=== PATIENT | male | born 1985 | race Caucasian/White ===

== ENCOUNTER 2017-01-15 13:03 | Emergency (ER) | payer SELFPAY ==
[2017-01-15] MEDS ORDERED: Sodium Chloride 0.9% 1,000 ML IV ONE (13:35)
--- NOTE | 2017-01-15 14:18 | C.PDOC ---
History Of Present Illness Pt is a 31 year old male presents to the ER c/o fever for 5 days. Patient notes feeling lethargic, body aches, sore throat, and abdominal bloating. Patient notes taking advil with no relief. Patient denies nausea, vomiting, trauma, diarrhea, sick contact, or any other complaints. Pt denies any abdominal pain. Time Seen by Provider: 01/15/17 13:31 Chief Complaint (Nursing): Abdominal Pain History Per: Patient History/Exam Limitations: no limitations, language barrier ([place] [id number]) Onset/Duration Of Symptoms: Days Current Symptoms Are (Timing): Still Present Sick Contacts (Context): None Associated Symptoms: Fever, Sore Throat Severity: Mild Past Medical History Reviewed: Historical Data, Nursing Documentation, Vital Signs Vital Signs: Last Vital Signs Temp 98.7 F 01/15/17 15:54 Pulse 95 H 01/15/17 15:54 Resp 18 01/15/17 15:54 BP 104/70 01/15/17 15:54 Pulse Ox 97 01/15/17 15:54 - Medical History PMH: No Chronic Diseases Family History: States: Diabetes, Other - Social History Hx Tobacco Use: No Hx Alcohol Use: No Hx Substance Use: No - Immunization History Hx Tetanus Toxoid Vaccination: No Hx Influenza Vaccination: No Hx Pneumococcal Vaccination: No Review Of Systems Except As Marked, All Systems Reviewed And Found Negative. Constitutional: Positive for: Fever, Malaise (Lethargic). Negative for: Other ( Trauma, Pain.) ENT: Positive for: Other (Sore throat) Gastrointestinal: Positive for: Other (Abdominal bloating). Negative for: Nausea, Vomiting, Diarrhea Musculoskeletal: Positive for: Other (Body aches) Physical Exam - Physical Exam Appears: Non-toxic, No Acute Distress Skin: Warm, Dry, No Rash Head: Atraumatic, Normacephalic Eye(s): bilateral: Normal Inspection Nose: Normal Oral Mucosa: Moist Tongue: Normal Appearing Lips: Normal Appearing Teeth: Normal Dentition Throat: Exudate (White exudates on tonsils bilaterally; no drooling, no trismus , no hot potato voice), No Other (No submandibular lymphadenopathy ) Neck: Normal ROM, Supple Lymphatic: Other (see throat exam) Cardiovascular: Rhythm Regular, No Murmur Respiratory: Normal Breath Sounds, No Rales, No Rhonchi, No Wheezing Gastrointestinal/Abdominal: Bowel Sounds, Soft, No Tenderness, No Guarding, No Rebound Extremity: Normal ROM Neurological/Psych: Oriented x3, Normal Speech, Normal Cognition ED Course And Treatment - Laboratory Results Result Diagrams: 01/15/17 14:19 01/15/17 14:19 Medical Decision Making Medical Decision Making: Initial Impression: Pharyngitis and bodyaches; lethargy Initial Plan: Lethargy probably from fever, but will check labs as a precaution. 3:26 PM -- Pt feels much better. I used an interpretor to obtain a better history. In contrast to triage, pt has not had any abdominal pain. Pt states the primary issue was his throat pain. Although rapid strep was negative, if a good throat swab is not obtained, you can have false negative. Strep throat also produces very high WBC count (as this pt has). Lactate result shows no signs of severe sepsis. I will treat for strep pharyngitis. Disposition - Disposition Referrals: [facility] [Outside] Disposition: HOME/ ROUTINE Disposition Time: 15:28 Condition: IMPROVED Prescriptions: Ibuprofen [Motrin Tab] 1 tab PO Q8 PRN #30 tab PRN Reason: Fever >100.4 F Penicillin VK [Pen-Vee K] 1 tab PO BID #20 tab Instructions: Strep Throat (ED) Forms: General Discharge Instructions Print Language: ITALIAN - POA Present On Arrival: None - Clinical Impression Clinical Impression: Pharyngitis - Scribe Statement The provider has reviewed the documentation as recorded by the Scribe Lincoln garzon All medical record entries made by the Scribe were at my direction and personally dictated by me. I have reviewed the chart and agree that the record accurately reflects my personal performance of the history, physical exam, medical decision making, and the department course for this patient. I have also personally directed, reviewed, and agree with the discharge instructions and disposition.
[2017-01-15 14:26] LABS: BASO # 0.1 K/uL (0.0-0.2); BASO % 0.5 % (0.0-2.0); EOS % 0.1 % (0.0-4.0); HEMATOCRIT 44.1 % (35.0-51.0); LYMPH # 2.9 K/uL (1.0-4.3); LYMPH % 15.9 % (20.0-40.0); MEAN CELL VOLUME 85.8 fL (80.0-94.0); MEAN CORPUSCULAR HEMOGLOBIN 28.6 pg (27.0-31.0); MEAN CORPUSCULAR HGB CONC 33.3 g/dL (33.0-37.0); MEAN PLATELET VOLUME 8.1 fL (7.2-11.7); MONO # 1.9 K/uL (0.0-0.8); MONO % 10.2 % (0.0-10.0); NRBC % 0.7 % (0.0-2.0); RED CELL DISTRIBUTION WIDTH 13.5 % (11.5-14.5); WHITE BLOOD COUNT 18.3 K/uL (4.8-10.8)
[2017-01-15 14:26] LABS: VENOUS BLOOD GAS BASE EXCESS 1.1 mmol/L (0.0-2.0); VENOUS BLOOD GAS PCO2 37 mmHg (40-60); VENOUS BLOOD PH 7.44 (7.32-7.43)
[2017-01-15 14:34] LABS: INR 1.2
[2017-01-15 14:35] LABS: CHLORIDE 99 mmol/L (98-107)
[2017-01-15 14:36] LABS: POTASSIUM 4.1 mmol/L (3.6-5.2); SODIUM 134 mmol/L (132-148)
[2017-01-15 14:38] LABS: ALB/GLOB RATIO 1.1 (1.0-2.1); ALKALINE PHOSPHATASE 88 U/L (38-126); ALT/SGPT 21 U/L (21-72); AST/SGOT 19 U/L (17-59); BILIRUBIN,TOTAL 0.8 mg/dL (0.2-1.3); BLOOD UREA NITROGEN 13 mg/dL (9-20); CARBON DIOXIDE 23 mmol/L (22-30); GFR AFRICAN-AMERICAN > 60; GLUCOSE,RANDOM 115 mg/dL (75-110); TOTAL PROTEIN 8.2 g/dL (6.3-8.3)
[2017-01-15 14:39] LABS: CALCIUM 8.7 mg/dl (8.6-10.4); MAGNESIUM 1.9 mg/dL (1.6-2.3); PHOSPHOROUS 2.5 mg/dL (2.5-4.5)
[2017-01-15 14:44] VITALS: O2SAT 97
[2017-01-15 14:49] LABS: RBC URINE 10 /hpf (0-3); URINE BILIRUBIN NEGATIVE (NEGATIVE); URINE BLOOD 2+ (NEGATIVE); URINE COLOR Yellow (YELLOW); URINE GLUCOSE (UA) NORMAL (Normal); URINE KETONE TRACE mg/dL (NEGATIVE); URINE LEUKOCYTE ESTERASE NEG Leu/uL (Negative); URINE PROTEIN NEGATIVE (NEGATIVE); URINE UROBILINOGEN NORMAL mg/dL (0.2-1.0); WBC URINE 1 /hpf (0-5)
[2017-01-15 15:54] VITALS: BP 104/70; PULSE 95; RESP 18; TEMP 98.7
--- NOTE | 2017-01-16 17:10 | CARD ---
APPROVED REPORT EKG Measurement Heart [id number] <Conclusion> Sinus tachycardia Possible Left atrial enlargement Borderline ECG
== END 2017-01-15 15:55 | disposition home or self-care (01) ==
LOC: C.ER 13:03
DX: J02.0 Streptococcal pharyngitis (principal)
CPT/HCPCS: 80053; 81001; 82803; 83735; 84100; 85025; 85610; 85730; 87040; 87070; 87086; 87430; 93005; 96360; 96361; 99285; J7040